=== PATIENT | female | born 1950 | race Hispanic/Latino ===

== ENCOUNTER 2017-07-07 07:37 | Emergency (ER) | payer OTHER ==
[~2017-07-07] VITALS: Ht 165.1 cm; Wt 70.0 kg
[2017-07-07] MEDS ORDERED: KEFLEX500 MG PO (08:03)
[2017-07-07] MEDS ORDERED: PYRIDIUM200 MG PO (08:03)
[2017-07-07 08:28] LABS: URINE BLOOD DIPSTICK LARGE (NEGATIVE); URINE COLOR YELLOW; URINE GLUCOSE - DIPSTICK NEGATIVE (NEGATIVE); URINE KETONE >=80 mg/dL (NEGATIVE); URINE LEUK ESTERASE NEGATIVE (NEGATIVE); URINE NITRITE - DIPSTICK NEGATIVE (Negative); URINE PROTEIN - DIPSTICK 30 mg/dL (NEG-TRACE); URINE SPECIFIC GRAVITY 1.025; URINE UROBILINOGEN - DIPSTICK 0.2 E.U./dL (0.2)
[2017-07-07 08:39] LABS: URINE BILIRUBIN - DIPSTICK SMALL (NEGATIVE)
[2017-07-07 08:40] LABS: URINE CLARITY CLOUDY; URINE RBC 25-50 RBC/hpf (0-5)
[2017-07-07 08:41] LABS: URINE BACTERIA FEW hpf; URINE EPITHELIAL CELLS FEW EPI/hpf (0-FEW); URINE MUCUS MANY hpf (NONE-FEW)
[2017-07-07 08:52] VITALS: BP 136/78
== END 2017-07-07 09:01 | disposition home or self-care (01) | DRG 690 ==
LOC: ED 07:37
PROVIDERS: Emergency Medicine
DX: N39.0 Urinary tract infection, site not specified (principal); M54.5 Low back pain; R30.0 Dysuria; R35.0 Frequency of micturition

== ENCOUNTER 2017-07-15 14:56 | Emergency (ER) | payer SELFPAY ==
[~2017-07-15] VITALS: Ht 165.1 cm; Wt 70.0 kg
[~2017-07-15 14:56] MED LIST: KEFLEX500 MG PO; PYRIDIUM200 MG PO
[2017-07-15 16:19] LABS: HEMATOCRIT 41.6 % (37.0-47.0); HEMOGLOBIN 13.4 g/dl (12.0-16.0); IMMATURE GRANULOCYTES 0.3 % (0.0-1.0); MEAN CELL VOLUME 93.7 fL CALC (80.0-100.0); MEAN CORPUSCULAR HGB 30.2 pG CALC (26.0-32.0); MEAN CORPUSCULAR HGB CONC 32.2 g/L CALC (32.0-36.0); NEUT# 8.53 thou/uL (2.00-7.15); RED BLOOD COUNT 4.44 mill/uL (4.20-5.60); RED CELL DISTRI WIDTH 12.6 % (11.5-15.5); URINE BLOOD DIPSTICK TRACE-LYSED (NEGATIVE); URINE GLUCOSE - DIPSTICK 100 mg/dL (NEGATIVE); URINE KETONE TRACE mg/dL (NEGATIVE); URINE LEUK ESTERASE TRACE (NEGATIVE); URINE PROTEIN - DIPSTICK 30 mg/dL (NEG-TRACE)
[2017-07-15 16:29] LABS: URINE BILIRUBIN - DIPSTICK NEGATIVE (NEGATIVE); URINE CLARITY CLEAR; URINE COLOR DK. YELLOW; URINE NITRITE - DIPSTICK POSITIVE (Negative)
[2017-07-15 16:36] LABS: URINE MUCUS FEW hpf (NONE-FEW); URINE SQUAMOUS EPITHELIAL CELL FEW EPI/hpf (0-FEW)
[2017-07-15 16:39] LABS: ALBUMIN 4.8 g/dL (3.2-5.0); ALKALINE PHOSPHATASE 122 u/l (38-126); AMYLASE 74 u/l (30-110); ANION GAP 18 (6-22 (CALC)); BILIRUBIN, TOTAL 0.6 mg/dL (0.0-1.4); BUN 11 mg/dL (8-23); BUN/CREATININE RATIO 16 (12-20 (CALC)); CALCIUM 9.8 mg/dL (8.4-10.2); CARBON DIOXIDE 29 mmol/l (22-30); CHLORIDE 100 mmol/l (95-108); CREATININE 0.7 mg/dL (0.5-1.0); GFR > 60 ML/MIN (>=60 (CALC)); GFR FOR AFR.AMER. > 60 ML/MIN (>=60 (CALC)); GLUCOSE 170 mg/dL (82-115); LIPASE 131 u/l (23-300); SGOT/AST 32 u/l (9-36); SGPT/ALT 62 u/l (11-66); SODIUM 143 mmol/l (137-146); TOTAL PROTEIN 8.1 g/dL (6.3-8.2)
[2017-07-15 18:40] VITALS: BP 131/62
== END 2017-07-15 18:40 | disposition short-term general hospital (02) | DRG 446 ==
LOC: ED 14:56
PROVIDERS: Emergency Medicine
DX: K80.70 Calculus of gallbladder and bile duct without cholecystitis without obstruction (principal)
CPT/HCPCS: Q9967; S0164